=== PATIENT | male | born 1985 | race African-American/Black ===

== ENCOUNTER 2017-11-23 19:26 | Emergency (ER) | payer SELFPAY ==
[~2017-11-23] VITALS: Ht 182.9 cm; Wt 88.5 kg
[2017-11-23 19:56] VITALS: BP 155/89
[2017-11-24] MEDS ORDERED: cefTRIAXone SOD 1,000 MG VL IM ONE (00:15)
== END 2017-11-24 01:05 | disposition home or self-care (01) ==
LOC: ER 19:26
DX: K02.9 Dental caries, unspecified (principal)
CPT/HCPCS: 96372; 99283; J0696